=== PATIENT | female | born 1990 | race Hispanic/Latino ===

== ENCOUNTER → 2024-02-07 | Outpatient (CLI) | payer BC | END | disposition home or self-care (01) | LOC: RAH 09:27 | PROVIDERS: ATTEND Obstetrics & Gynecology | DX: N83.8 Other noninflammatory disorders of ovary, fallopian tube and broad ligament (principal); R10.2 Pelvic and perineal pain | CPT/HCPCS: 76830 ==

== ENCOUNTER 2024-10-27 21:01 | Emergency (ER) | payer BC ==
[~2024-10-27] VITALS: Ht 162.6 cm; Wt 76.0 kg
--- NOTE | 2024-10-27 21:03 | NUR ---
UA CUP PROVIDED
[2024-10-27 21:36] LABS: IMMATURE GRANULOCYTE ABSOLUTE 0.02 K/uL (0-1); NUCLEATED RED BLOOD CELLS 0.0 % (0.0-0.19); PLATELET COUNT (AUTO) 256 K/uL (130-400); RED BLOOD CELL COUNT(AUTO) 4.17 MIL/uL (4.00-5.50); RED CELL DISTRIBUTION WIDTH 13.8 % (11.0-15.5); WHITE BLOOD COUNT (AUTO) 8.7 K/uL (4.8-10.8)
[2024-10-27 21:38] LABS: APPEARANCE,URINE CLEAR (CLEAR); GLUCOSE, URINE (UA) NEGATIVE (NEGATIVE); LEUKOCYTE ESTERASE ,URINE NEGATIVE Leu/uL (NEGATIVE); NITRATE,URINE NEGATIVE (NEGATIVE); OCCULT BLOOD,URINE LARGE (NEGATIVE)
[2024-10-27 21:43] LABS: CREATININE 0.7 mg/dL (0.5-1.0); GLOMERULAR FILTR. RATE CALC 116.0 mL/min (>90); GLUCOSE,RANDOM 109.0 mg/dL (70-105); SODIUM SERUM 137.0 mmol/L (136-145); UREA NITROGEN, BLOOD 13.0 mg/dL (7-18)
[2024-10-27 21:46] LABS: ADD UA MICROSCOPIC YES
[2024-10-27 21:48] LABS: SQUAMOUS EPITHELIAL CELL,UR FEW /HPF (0-2)
[2024-10-27 21:55] LABS: HCG,QUANTITATIVE 978.0 mIU/mL (0-5)
--- NOTE | 2024-10-27 22:04 | ERN ---
ED Note History of Present Illness Stated Complaint: LOW ABD PAIN, VAGINAL BLEEDING Chief Complaint: Vaginal Bleeding Time Seen by MD: 21:34 Dictation: This is a 34-year-old female who is approximately 10 weeks came in with complaints of lower abdominal cramping and mild vaginal bleeding. She stated that the drainage was brownish very small amount and when she wiped her room vulva small amount of bright red blood was present. It started around 6:00 p.m. and she has used only a very small PAD with a no blood clots no massive bleeding. This is her 1st . 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 Temperature 99 pulse 88 respirations 16 blood pressure 141/90 with a pulse oximetry of 100% on room air Allergies: Coded Allergies: No Known Allergies (Unverified Allergy, Unknown, 10/27/24) Past Medical History Past Medical History: No Pertinent History Surgical History: None Family History: Negative Social History: Negative LMP: August 14, 2024 : 1 RN Note Reviewed/Agreed w/PFSH: Yes Review of System Dictation Constitutional: Negative for fever,chills, and weight loss Eyes: Negative for injury, pain,redness, and discharge ENT: Negative for injury,pain or swelling Cardiovascular: Negative for chest pain, palpitations, and edema Respiratory: Negative for shortness of breath, cough, and wheezing, Abdomen/GI: Negative for abdominal pain, nausea, vomiting, diarrhea, and constipation Back: Negative for injury and pain : Negative for injury, positive for . Vaginal bleeding starting today MS/Extremity: Negative for injury and deformity Skin: Negative for rash, and discoloration Neuro: Negative for headache, weakness, numbness, tingling, and seizure Psych: Negative for suicide ideation, homicidal ideation, and hallucinations Initial Vital Sign VS Vital Signs Date Time Temp Pulse Resp B/P (MAP) Pulse Ox O2 Delivery O2 Flow Rate FiO2 10/27/24 21:02 99.0 88 16 141/90 100 Room Air Physical Exam Dictation General: awake, alert, NAD Head/Face: Normocephalic, atraumatic Eyes: PERRL, EOMI, vision at baseline ENT: oral cavity clear, TMs clear, no signs of infection Neck: Trachea midline, supple, no nuchal rigidity Cardiovascular: RRR, normal S1/S2, No MRGs, no JVD Respiratory: CTAB, no respiratory distress, No rales or wheezes Abdomen: Soft, non-tender, non-distended, normal bowel sounds, no guarding or rebound. Skin: Warm, dry, normal turgor, no rash MS/Extremity: Pulses equal, no cyanosis, neurovascular intact, FROM Neuro: COAx4, GCS 15, strength 5/5, CN 2-12 intact, normal cerebellar exam, normal gait, Psych: Normal behavior, mood, and affect normal Extremities-trace edema without any palpable cords, Homans sign is negative Results (Laboratory/Radiology) Laboratory/Radiology Laboratory Tests Test 10/27/24 21:19 10/27/24 21:20 Urine Color LIGHT-YELLOW (YELLOW) Urine Appearance CLEAR (CLEAR) Urine pH 5.5 (5.0-8.0) Urine Specific [place] 1.020 (1.001-1.031) Urine Protein NEGATIVE mg/dL (NEGATIVE) Urine Glucose (UA) NEGATIVE mg/dL (NEGATIVE) Urine Ketones NEGATIVE mg/dL (NEGATIVE) Urine Occult Blood LARGE (NEGATIVE) H Urine Nitrate NEGATIVE (NEGATIVE) Urine Bilirubin NEGATIVE mg/dL (NEGATIVE) Urine Urobilinogen 0.2 mg/dL (0.2-1.0) Urine Leukocyte Esterase NEGATIVE Wilma/uL Urine RBC 11-25 /HPF (0-1) H Urine WBC 2-5 /HPF (0-1) H Urine Squamous Epithelial Cells FEW /HPF (0-2) Urine Bacteria RARE /HPF (None Seen) White Blood Count 8.7 K/uL (4.8-10.8) Red Blood Count 4.17 MIL/uL (4.00-5.50) Hemoglobin 13.2 g/dL (12.0-16.0) Hematocrit 38.8 % (36-48) Mean Corpuscular Volume 93.0 fL (79-99) Mean Corpuscular Hemoglobin 31.7 pg (27.0-33.0) Mean Corpuscular Hemoglobin Concent 34.0 g/dL (32.0-36.0) Red Cell Distribution Width 13.8 % (11.0-15.5) Platelet Count 256 K/uL (130-400) Mean Platelet Volume 12.0 fL (7.5-10.5) H Immature Granulocyte % (Auto) 0.2 % (0-1) Neutrophils (%) (Auto) 63.9 % (40.0-77.0) Lymphocytes (%) (Auto) 27.4 % (21.0-51.0) Monocytes (%) (Auto) 6.4 % (3.0-13.0) Eosinophils (%) (Auto) 1.6 % (0.0-8.0) Basophils (%) (Auto) 0.5 % (0.0-5.0) Neutrophils # (Auto) 5.6 K/uL (1.8-7.7) Lymphocytes # (Auto) 2.4 K/uL (1.0-4.8) Monocytes # (Auto) 0.6 K/uL (0.1-1.0) Eosinophils # (Auto) 0.14 K/uL (0.00-0.70) Basophils # (Auto) 0.04 K/uL (0.00-0.20) Absolute Immature Granulocyte (auto 0.02 K/uL (0-1) Nucleated Red Blood Cells 0.0 % (0.0-0.19) Sodium Level 137 mmol/L (136-145) Potassium Level 3.6 mmol/L (3.5-5.1) Chloride Level 103 mmol/L (101-111) Carbon Dioxide Level 27 mmol/L (21-32) Blood Urea Nitrogen 13 mg/dL (7-18) Creatinine 0.7 mg/dL (0.5-1.0) Glomerular Filtration Rate Calc 116 mL/min (>90) Random Glucose 109 mg/dL (70-105) H Total Calcium 9.2 mg/dL (8.5-10.1) Human Chorionic Gonadotropin, Quant 978 mIU/mL (0-5) H Serum Test, Qualitative POSITIVE (NEGATIVE) H Labs Reviewed?: Yes ED Course ED Course Orders Procedure Category Date Status Time Vital Signs Per CPOE 10/27/24 Transmitted Routine 21:08 Cbc With Differential LAB 10/27/24 Complete 21:08 Testing, LAB 10/27/24 Complete Serum Hcg 21:08 Type And Screen BBK 10/27/24 Complete 21:08 Iv Insertion CPOE 10/27/24 Transmitted 21:08 Basic Metabolic Panel LAB 10/27/24 Complete 21:08 Urinalysis Profile LAB 10/27/24 Complete 21:08 Hcg,Quantitative LAB 10/27/24 Complete 21:08 Us Ob <14 Weeks US 10/27/24 Logged 21:35 Vital Signs Date Time Temp Pulse Resp B/P (MAP) Pulse Ox O2 Delivery O2 Flow Rate FiO2 10/27/24 21:02 99.0 88 16 141/90 100 Room Air We will perform diagnostic labs, advanced imaging and administer medications according to the patient's complaint. Once the results are available, will review and personally interpreted the labs to rule out any acute life- threatening emergency the trach require immediate intervention and treatment. I will then re-evaluate the patient after treatment and diagnostic exams have return to determine whether the patient requires any further testing, can safely be discharged home or need further admission to hospital for additional treatment and evaluation. Labs reviewed CBC BNP 7 are within normal limits urinalysis have small amounts of occult blood and RBCs but no evidence of any infection. Urine test was positive and hCG was 978 Ob ultrasound less than 14 weeks does show a gestational sac with a extremely tiny fetus and the tech could not get the heart rate. I updated the patient and her mom at bedside and went over all the normal study tests in the ultrasound findings. I encouraged her to keep drinking enough fluids and to follow up with her OB on Monday Medical Decision Making MDM Differential diagnosis: Implantation bleeding, subchorionic hematomas, threat of , ectopic Rationale: Tests considered and ordered secondary to shared decision making include: Previous outside records reviewed: Old ER visits. Risk of complication and/or morbidity or mortality of patient management: None Medications-Per medication reconciliation Need for hospitalization: Patient does not meet criteria for hospitalization. Need for emergency major/minor surgery: No There are no social concerns with this patient. Prescription drug management Prescriptions will include symptomatic care Patient's prior external medical records from other ER visits were reviewed by me as indicated. Prior testing and results from previous visits were reviewed. Prior tests were taken into account with medical decision making and resource utilization, independent historian/historians were used to obtain complete medical history. I independently interpreted the test that were performed, results were reviewed by me and considered findings on radiology if ordered. Medical management and examination interpretation discussions were had by me with other qualified healthcare professionals as indicated for the patient's care. Problem List Problem List: (1) Vaginal bleeding in patient after first trimester DX & DISP Disposition: Discharge Departure Impression: Primary Impression: Vaginal bleeding in patient after first trimester Condition: Stable Additional Instructions: Patient and the caregiver have been informed of all the diagnostic tests and the imaging conducted during the today's visit to the emergency room and has verbalized understanding of the results I have personally reviewed and interpreted all diagnostic exams performed here in the ER today as well as the vital signs documented by the nursing staff. The patient is now being d ischarged to home and should follow up with the primary care physician or the specialist as directed by the ER staff. Follow-up with primary care provider in 1 to 2 days. Take medications as directed here in the emergency room. Okay to continue home medications unless otherwise discussed during your visit in the emergency room today. Return to your nearest emergency room if symptoms worsen or if there is no improvement. Call 911 if you need immediate assistance. Take Tylenol or Motrin [id number] as needed and if no contraindications are present. Increase oral hydration. A wound culture or urine culture was ordered here in the emergency room department please follow-up with primary care provider and advise them to get repeat ports from our facility. If you had any Duane wrap/splints that were applied here, please do not remove them until you see your primary care or specialty. Referrals: YOLANDA ODELL MD (PCP) MIRTA ARROYO MD Oct 27, 2024 22:04
[2024-10-27 22:35] VITALS: BP 132/84; PULSE 81; RESP 18; TEMP 98.5; O2SAT 98
--- NOTE | 2024-10-27 23:25 | HMCIMG ---
EXAMINATION: OB ultrasound less than 14 weeks. CLINICAL HISTORY: Amenorrhea. Vaginal bleeding. COMPARISON: None. TECHNIQUE: Grayscale and color ultrasound images were obtained utilizing transabdominal transducer. FINDINGS: LMP: 08/14/2024, 10 weeks and 4 days. The uterus measures 9.1 x 5.5 x 6.0 cm. The gestation sac diameter measures 3.5 x 1.8 x 3.3 cm. 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 There is no evidence of subchorionic hemorrhage. The cervix is normal in length. Internal Os closed. EDC (by LMP): 05/21/2025 and EDC (by measurement): 06/18/2025. The right ovary is normal in caliber and measures 2.9 x 1.6 x 1.8 cm. The left ovary is normal in caliber and measures 3.1 x 3.0 x 3.6 cm. There is a corpus luteum that measures 2.7 x 1.7 x 1.9 cm. There is no free fluid within the pelvis. IMPRESSION: Intrauterine with an approximate gestational age of 6 weeks and 4 days with reported cardiac flickering noted. Recommend follow up scans to ascertain cardiac activity rhythm and rate. Left ovarian corpus luteum. /[place]
== END 2024-10-27 22:36 | disposition home or self-care (01) ==
LOC: EDH 21:01
DX: O20.9 Hemorrhage in early pregnancy, unspecified (principal); R10.2 Pelvic and perineal pain; Z3A.01 Less than 8 weeks gestation of pregnancy
CPT/HCPCS: 36415; 76801; 80048; 81001; 84702; 84703; 85025; 86850; 86900; 86901; 99284